=== PATIENT | female | born 1960 | race Caucasian/White ===

== ENCOUNTER → 2017-04-25 | Outpatient (CLI) | payer BC ==
--- NOTE | 2017-04-25 12:35 | KCIC ---
MR of the right foot without contrast HISTORY: Right foot pain. Mid foot pain for one month. TECHNIQUE: Routine multiplanar sequences. FINDINGS: Marrow edema identified at the medial talus. There appears to be a small nondisplaced subcortical fracture. This edema also extends to the medial subchondral margin of the medial talar dome. The other visualized bones are intact. No evidence of acute tendon disruption or significant tendon sheath fluid. Lisfranc ligament complex is intact. Tarsometatarsal alignment is intact. No abnormal soft tissue edema or fluid collection. IMPRESSION: Acute subcortical and subchondral marrow edema at the medial talus with a probable nondisplaced subcortical fracture. No evidence of an unstable osteochondral lesion. Electronically signed by: Qasim Meng MD (04/25/2017 12:32 PM) [id number]
== END | disposition home or self-care (01) ==
LOC: KCIC MRI 11:21
PROVIDERS: ATTEND Family Medicine
DX: M79.671 Pain in right foot (principal)
CPT/HCPCS: 73718